=== PATIENT | male | born 1960 | race Caucasian/White ===

== ENCOUNTER 2019-02-22 17:19 | Emergency (ER) | payer MEDICARE, MEDICAID ==
[~2019-02-22] VITALS: Ht 170.2 cm; Wt 58.5 kg
[2019-02-22 19:28] VITALS: BP 162/80
== END 2019-02-22 19:29 | disposition home or self-care (01) ==
LOC: M.ERS 17:19
DX: R04.0 Epistaxis (principal); K21.9 Gastro-esophageal reflux disease without esophagitis; I10 Essential (primary) hypertension; G43.909 Migraine, unspecified, not intractable, without status migrainosus; F17.210 Nicotine dependence, cigarettes, uncomplicated; Z86.73 Personal history of transient ischemic attack (TIA), and cerebral infarction without residual deficits

== ENCOUNTER 2019-02-27 10:46 | Emergency (ER) | payer MEDICARE, MEDICAID ==
[~2019-02-27] VITALS: Ht 170.2 cm; Wt 57.1 kg
[2019-02-27 10:54] VITALS: BP 185/113
== END 2019-02-27 11:12 | disposition home or self-care (01) ==
LOC: M.ERS 10:46
DX: R04.0 Epistaxis (principal); Z88.0 Allergy status to penicillin; K21.9 Gastro-esophageal reflux disease without esophagitis; I10 Essential (primary) hypertension; Z86.73 Personal history of transient ischemic attack (TIA), and cerebral infarction without residual deficits